=== PATIENT | female | born 1985 | race Caucasian/White ===

== ENCOUNTER 2018-03-14 16:48 | Inpatient (IN) ==
[2018-03-14 17:49] LABS: Bilirubin,Urine Negative (Negative); Blood,Urine Negative (Negative); Clarity,Urine Clear (Clear); Color,Urine Yellow (Yellow); Glucose,Urine (UA) Normal (Normal); Ketones,Urine Negative (Negative); Leukocyte Esterase,Urine Negative (Negative); Nitrite,Urine Negative (Negative); PH,Urine 6.5 pH Units (5.0-8.0); Protein,Urine Negative (Neg-Trace); Specific Gravity,Urine 1.012 (1.010-1.025); Urobilinogen,Urine Normal (Normal)
[2018-03-14 17:53] LABS: Basophils % 0.4 %; Eosinophils % 0.1 %; Hemoglobin 13.5 g/dL (11.5-15.4); Immature Granulocytes % 0.3 % (0-4); Lymphocytes # 1.5 K/mcL (0.6-4.6); Lymphocytes % 15.1 %; Mean Corpuscular HGB Conc 32.9 g/dL (31.6-35.5); Mean Corpuscular Hemoglobin 28.1 pg (28.0-33.3); Mean Corpuscular Volume 85.2 fL (83.0-100.0); Mean Platelet Volume 9.9 fL (9.4-12.4); Monocytes # 0.5 K/mcL (0.0-1.3); Monocytes % 4.9 %; Neutrophils # 7.7 K/mcL (1.6-8.9); Platelet Count 261 K/mcL (140-400); Red Blood Count 4.81 M/mcL (3.82-4.97); Red Cell Distribution Width 13.4 % (11.5-14.5); Segmented Neutrophils % 79.2 %
[2018-03-14 17:58] LABS: Amphetamine Screen,Urine Positive ng/mL (Cutoff=1000); Barbiturate Screen,Urine Negative ng/mL (Cutoff=200); Benzodiazepines Screen,Urine Negative ng/mL (Cutoff=200); Cannabinoid Screen,Urine Positive ng/mL (Cutoff = 50); Cocaine Screen,Urine Negative ng/mL (Cutoff= 300); Opiate Screen,Urine Negative ng/mL (Cutoff=300); Phencyclidine Screen,Urine Negative ng/mL (Cutoff=25)
[2018-03-14 18:12] LABS: Acetaminophen < 10 mcg/mL (10-20); BUN/Creatinine Ratio 13 (6-26); Blood Urea Nitrogen 10 mg/dL (6-20); Calcium 9.9 mg/dL (8.6-10.3); Carbon Dioxide 28 mEq/L (23-29); Chloride 106 mEq/L (98-107); Ethanol < 10 mg/dL (Less than 10); Glucose 104 mg/dL (70-105); Osmolality,Calculated 293 (280-300); Potassium 3.4 mEq/L (3.5-5.1); Salicylate < 2.5 mg/dL (15.0-30.0); Sodium 142 mEq/L (136-145); eGFR For Non-African Americans > 60 (> 60)
--- NOTE | 2018-03-14 19:43 | Emergency Department Note ---
Disposition Clinical Impression: Acute psychosis Disposition: Still a Patient Forms: ED Satisfaction Letter Time of Disposition: 18:38 General Adult HPI - General Chief complaint: ED Psychiatric Symptoms Stated complaint: psych Time Seen by Provider: 03/14/18 17:19 Source: patient, family Mode of arrival: ambulatory Limitations: no limitations Nursing Notes Reviewed: Yes Vital Signs Reviewed: Yes - History of Present Illness HPI Narrative: Patient presents to the emergency department the chief complaint of behavior changes. Talking to people who are not there. Yelling at family members. Associating people she comes in contact with with people from her past. states that she stalking out of her head. Patient states that he just does not follow her. She states she is having nightmares. She denies that there is any issues. She denies wanting to hurt herself. He does not believe that she is a threat to herself but is concerned about the safety of others. Pain Scale: 0 - Related Data Previous Rx's Medication Instructions Recorded Amoxicillin 875 mg PO BID #20 tablet 11/12/16 Albuterol Sulfate [Albuterol 2 puff IH Q6HR PRN #1 inhaler 05/29/17 Inhaler] Benzonatate [Tessalon] 200 mg PO TID PRN 7 Days capsule 05/29/17 Loratadine/Pseudophed (12 HR) 1 each PO BID PRN 7 Days #15 05/29/17 [Claritin D (12HR)] tab.er.12h Allergies Allergy/AdvReac Type Severity Reaction Status Date / Time Sulfa (Sulfonamide Allergy Hives Verified 03/14/18 16:54 Antibiotics) All systems ED: reviewed and negative except as stated. Constitutional: Denies: fever Cardiovascular: Denies: chest pain Respiratory: Denies: dyspnea Gastrointestinal: Denies: abdominal pain, nausea, vomiting, diarrhea Past Medical History - Past Medical History Attestation: Yes The following information was validated with the patient. Source: patient Medical history: Reports: no medical history Psychiatric history: Reports: anxiety, depression - Social History Smoking Status: Former smoker Smokeless Tobacco Status: No Alcohol use: Reports: none Drug use: Reports: none Physical Exam Patient awake and alert sitting up in bed. Mildly agitated. Calls me by alec eone else's name. Thinks I am someone from her past. - General Limitations: no limitations General appearance: alert, anxious - Head Head exam: atraumatic, normocephalic - Eye Eye exam: Present: normal appearance, PERRL - ENT ENT exam: normal exam - Neck Neck exam: Present: normal inspection - Respiratory Respiratory exam: Present: normal lung sounds bilaterally - Cardiovascular Cardiovascular exam: Present: regular rate, normal rhythm, normal heart sounds - Abdominal Exam Abdominal exam: Present: soft - Back Exam Back exam: Present: normal inspection - Neurological Exam Neurological exam: Present: alert, oriented X3 - Psychiatric Psychiatric exam: Present: agitated, anxious - Skin Skin exam: Present: warm, dry Course Course Narrative: Patient is in no distress. Medically clear and have her evaluated by 1A. - Reevaluation(s) Reevaluation #1: Patient is medically cleared at this time. We will have nursing staff contact Ia for evaluation. Will be signed out to material handler 2nd shift pending disposition. Time: 18:38 Vital Signs Temperature 97.8 F 03/14/18 16:55 Pulse Rate 112 03/14/18 16:55 Respiratory Rate 18 03/14/18 16:55 Blood Pressure 153/100 03/14/18 16:55 O2 Sat by Pulse Oximetry 100 03/14/18 16:55 Temperature 97.8 F 03/14/18 16:55 Pulse Rate 112 03/14/18 16:55 Respiratory Rate 18 03/14/18 16:55 Blood Pressure 153/100 03/14/18 16:55 O2 Sat by Pulse Oximetry 100 03/14/18 16:55 Oxygen Delivery Oxygen Delivery Room Air Medical Decision Making - Lab Data Result diagrams: 03/14/18 17:43 03/14/18 17:43 Lab Results 03/14/18 03/14/18 03/14/18 Range/Units 17:35 17:35 17:35 WBC (4.3-11.1) K/mcL RBC (3.82-4.97) M/mcL Hgb (11.5-15.4) g/dL Hct (35.3-44.9) % MCV (83.0-100.0) fL MCH (28.0-33.3) pg MCHC (31.6-35.5) g/dL RDW (11.5-14.5) % Plt Count (140-400) K/mcL MPV (9.4-12.4) fL Immature Gran % (0-4) % Seg Neutrophils % % Lymphocytes % % Monocytes % % Eosinophils % % Basophils % % Neutrophils # (1.6-8.9) K/mcL Lymphocytes # (0.6-4.6) K/mcL Monocytes # (0.0-1.3) K/mcL Eosinophils # (0.0-0.6) K/mcL Basophils # (0.0-0.2) K/mcL Sodium (136-145) mEq/L Potassium (3.5-5.1) mEq/L Chloride (98-107) mEq/L Carbon Dioxide (23-29) mEq/L BUN (6-20) mg/dL Creatinine (0.60-1.20) mg/dL Est GFR ( Amer) (> 60) Est GFR (Non-Af Amer) (> 60) BUN/Creatinine Ratio (6-26) Glucose (70-105) mg/dL Calculated Osmolality (280-300) Calcium (8.6-10.3) mg/dL Urine Color Yellow (Yellow) Urine Clarity Clear (Clear) Urine pH 6.5 (5.0-8.0) pH Units Ur Specific [place] 1.012 (1.010-1.025) Urine Protein Negative (Neg-Trace) mg/dL Urine Glucose (UA) Normal (Normal) mg/dL Urine Ketones Negative (Negative) mg/dL Urine Blood Negative (Negative) Urine Nitrite Negative (Negative) Urine Bilirubin Negative (Negative) Urine Urobilinogen Normal (Normal) mg/dL Ur Leukocyte Esterase Negative (Negative) Urine Test Negative (Negative) Salicylates (15.0-30.0) mg/dL Urine Opiates Screen Negative (Rdwkcz=643) ng/mL Acetaminophen (10-20) mcg/mL Ur Barbiturates Screen Negative (Yawuqx=331) ng/mL Ur Phencyclidine Scrn Negative (Cutoff=25) ng/mL Ur Amphetamines Screen Positive H (Qummng=6267) ng/mL U Benzodiazepines Scrn Negative (Kldvaq=979) ng/mL Urine Cocaine Screen Negative (Cutoff= 300) ng/mL U Marijuana (THC) Screen Positive H (Cutoff = 50) ng/mL Ur Drug Screen Interp See Below Ethyl Alcohol (Less than 10) mg/dL 03/14/18 03/14/18 Range/Units 17:43 17:43 WBC 9.8 (4.3-11.1) K/mcL RBC 4.81 (3.82-4.97) M/mcL Hgb 13.5 (11.5-15.4) g/dL Hct 41.0 (35.3-44.9) % MCV 85.2 (83.0-100.0) fL MCH 28.1 (28.0-33.3) pg MCHC 32.9 (31.6-35.5) g/dL RDW 13.4 (11.5-14.5) % Plt Count 261 (140-400) K/mcL MPV 9.9 (9.4-12.4) fL Immature Gran % 0.3 (0-4) % Seg Neutrophils % 79.2 % Lymphocytes % 15.1 % Monocytes % 4.9 % Eosinophils % 0.1 % Basophils % 0.4 % Neutrophils # 7.7 (1.6-8.9) K/mcL Lymphocytes # 1.5 (0.6-4.6) K/mcL Monocytes # 0.5 (0.0-1.3) K/mcL Eosinophils # 0.0 (0.0-0.6) K/mcL Basophils # 0.0 (0.0-0.2) K/mcL Sodium 142 (136-145) mEq/L Potassium 3.4 L (3.5-5.1) mEq/L Chloride 106 (98-107) mEq/L Carbon Dioxide 28 (23-29) mEq/L BUN 10 (6-20) mg/dL Creatinine 0.79 (0.60-1.20) mg/dL Est GFR ( Amer) > 60 (> 60) Est GFR (Non-Af Amer) > 60 (> 60) BUN/Creatinine Ratio 13 (6-26) Glucose 104 (70-105) mg/dL Calculated Osmolality 293 (280-300) Calcium 9.9 (8.6-10.3) mg/dL Urine Color (Yellow) Urine Clarity (Clear) Urine pH (5.0-8.0) pH Units Ur Specific [place] (1.010-1.025) Urine Protein (Neg-Trace) mg/dL Urine Glucose (UA) (Normal) mg/dL Urine Ketones (Negative) mg/dL Urine Blood (Negative) Urine Nitrite (Negative) Urine Bilirubin (Negative) Urine Urobilinogen (Normal) mg/dL Ur Leukocyte Esterase (Negative) Urine Test (Negative) Salicylates < 2.5 L (15.0-30.0) mg/dL Urine Opiates Screen (Dcgvwu=469) ng/mL Acetaminophen < 10 L (10-20) mcg/mL Ur Barbiturates Screen (Onniba=165) ng/mL Ur Phencyclidine Scrn (Cutoff=25) ng/mL Ur Amphetamines Screen (Zwkeug=7643) ng/mL U Benzodiazepines Scrn (Tgxwzc=517) ng/mL Urine Cocaine Screen (Cutoff= 300) ng/mL U Marijuana (THC) Screen (Cutoff = 50) ng/mL Ur Drug Screen Interp Ethyl Alcohol < 10 (Less than 10) mg/dL
--- NOTE | 2018-03-14 21:17 | Emergency Department Note ---
Disposition Clinical Impression: Acute psychosis, Major depression with psychotic features Disposition: Admitted As Inpatient Condition: Good Referrals: NONE,PCP [Primary Care Provider] - Forms: ED Satisfaction Letter Time of Disposition: 21:17 General Adult HPI - General Chief complaint: ED Psychiatric Symptoms Stated complaint: psych Time Seen by Provider: 03/14/18 17:19 Source: patient, family Mode of arrival: ambulatory Limitations: no limitations - History of Present Illness Pain Scale: 0 - Related Data Previous Rx's Medication Instructions Recorded Amoxicillin 875 mg PO BID #20 tablet 11/12/16 Albuterol Sulfate [Albuterol 2 puff IH Q6HR PRN #1 inhaler 05/29/17 Inhaler] Benzonatate [Tessalon] 200 mg PO TID PRN 7 Days capsule 05/29/17 Loratadine/Pseudophed (12 HR) 1 each PO BID PRN 7 Days #15 05/29/17 [Claritin D (12HR)] tab.er.12h Allergies Allergy/AdvReac Type Severity Reaction Status Date / Time Sulfa (Sulfonamide Allergy Hives Verified 03/14/18 16:54 Antibiotics) Constitutional: Denies: fever Cardiovascular: Denies: chest pain Respiratory: Denies: dyspnea Gastrointestinal: Denies: abdominal pain, nausea, vomiting, diarrhea Past Medical History - Past Medical History Medical history: Reports: no medical history Psychiatric history: Reports: anxiety, depression - Social History Smoking Status: Former smoker Smokeless Tobacco Status: No Alcohol use: Reports: none Drug use: Reports: none Physical Exam - General Limitations: no limitations General appearance: alert, anxious Course Course Narrative: This patient was signed out to me at shift change from Dr. Shayla franco. Please refer to her note for complete details of history and physical examination. Patient presented for psychiatric evaluation due to some behavioral and psychotic issues and threatening family members. She has been medically cleared for psychiatric evaluation and is awaiting consult by the [address] psychiatry department. After being evaluated by the [address] psychiatry department and consulted with the psychiatrist patient is being admitted to the [address] psychiatric unit. Vital Signs Temperature 97.8 F 03/14/18 16:55 Pulse Rate 112 03/14/18 16:55 Respiratory Rate 18 03/14/18 16:55 Blood Pressure 153/100 03/14/18 16:55 O2 Sat by Pulse Oximetry 100 03/14/18 16:55 Temperature 97.8 F 03/14/18 17:10 Pulse Rate 102 03/14/18 17:10 Respiratory Rate 18 03/14/18 17:10 Blood Pressure 153/100 03/14/18 17:10 O2 Sat by Pulse Oximetry 97 03/14/18 17:10 Oxygen Delivery Oxygen Delivery Room Air Medical Decision Making - Lab Data Lab results reviewed: Yes I reviewed the patient's lab results. Result diagrams: 03/14/18 17:43 03/14/18 17:43 Lab Results 03/14/18 03/14/18 03/14/18 Range/Units 17:35 17:35 17:35 WBC (4.3-11.1) K/mcL RBC (3.82-4.97) M/mcL Hgb (11.5-15.4) g/dL Hct (35.3-44.9) % MCV (83.0-100.0) fL MCH (28.0-33.3) pg MCHC (31.6-35.5) g/dL RDW (11.5-14.5) % Plt Count (140-400) K/mcL MPV (9.4-12.4) fL Immature Gran % (0-4) % Seg Neutrophils % % Lymphocytes % % Monocytes % % Eosinophils % % Basophils % % Neutrophils # (1.6-8.9) K/mcL Lymphocytes # (0.6-4.6) K/mcL Monocytes # (0.0-1.3) K/mcL Eosinophils # (0.0-0.6) K/mcL Basophils # (0.0-0.2) K/mcL Sodium (136-145) mEq/L Potassium (3.5-5.1) mEq/L Chloride (98-107) mEq/L Carbon Dioxide (23-29) mEq/L BUN (6-20) mg/dL Creatinine (0.60-1.20) mg/dL Est GFR ( Amer) (> 60) Est GFR (Non-Af Amer) (> 60) BUN/Creatinine Ratio (6-26) Glucose (70-105) mg/dL Calculated Osmolality (280-300) Calcium (8.6-10.3) mg/dL Urine Color Yellow (Yellow) Urine Clarity Clear (Clear) Urine pH 6.5 (5.0-8.0) pH Units Ur Specific [place] 1.012 (1.010-1.025) Urine Protein Negative (Neg-Trace) mg/dL Urine Glucose (UA) Normal (Normal) mg/dL Urine Ketones Negative (Negative) mg/dL Urine Blood Negative (Negative) Urine Nitrite Negative (Negative) Urine Bilirubin Negative (Negative) Urine Urobilinogen Normal (Normal) mg/dL Ur Leukocyte Esterase Negative (Negative) Urine Test Negative (Negative) Salicylates (15.0-30.0) mg/dL Urine Opiates Screen Negative (Kjuivh=806) ng/mL Acetaminophen (10-20) mcg/mL Ur Barbiturates Screen Negative (Vmnpxb=161) ng/mL Ur Phencyclidine Scrn Negative (Cutoff=25) ng/mL Ur Amphetamines Screen Positive H (Yaqhat=6416) ng/mL U Benzodiazepines Scrn Negative (Lzptnn=129) ng/mL Urine Cocaine Screen Negative (Cutoff= 300) ng/mL U Marijuana (THC) Screen Positive H (Cutoff = 50) ng/mL Ur Drug Screen Interp See Below Ethyl Alcohol (Less than 10) mg/dL 03/14/18 03/14/18 Range/Units 17:43 17:43 WBC 9.8 (4.3-11.1) K/mcL RBC 4.81 (3.82-4.97) M/mcL Hgb 13.5 (11.5-15.4) g/dL Hct 41.0 (35.3-44.9) % MCV 85.2 (83.0-100.0) fL MCH 28.1 (28.0-33.3) pg MCHC 32.9 (31.6-35.5) g/dL RDW 13.4 (11.5-14.5) % Plt Count 261 (140-400) K/mcL MPV 9.9 (9.4-12.4) fL Immature Gran % 0.3 (0-4) % Seg Neutrophils % 79.2 % Lymphocytes % 15.1 % Monocytes % 4.9 % Eosinophils % 0.1 % Basophils % 0.4 % Neutrophils # 7.7 (1.6-8.9) K/mcL Lymphocytes # 1.5 (0.6-4.6) K/mcL Monocytes # 0.5 (0.0-1.3) K/mcL Eosinophils # 0.0 (0.0-0.6) K/mcL Basophils # 0.0 (0.0-0.2) K/mcL Sodium 142 (136-145) mEq/L Potassium 3.4 L (3.5-5.1) mEq/L Chloride 106 (98-107) mEq/L Carbon Dioxide 28 (23-29) mEq/L BUN 10 (6-20) mg/dL Creatinine 0.79 (0.60-1.20) mg/dL Est GFR ( Amer) > 60 (> 60) Est GFR (Non-Af Amer) > 60 (> 60) BUN/Creatinine Ratio 13 (6-26) Glucose 104 (70-105) mg/dL Calculated Osmolality 293 (280-300) Calcium 9.9 (8.6-10.3) mg/dL Urine Color (Yellow) Urine Clarity (Clear) Urine pH (5.0-8.0) pH Units Ur Specific [place] (1.010-1.025) Urine Protein (Neg-Trace) mg/dL Urine Glucose (UA) (Normal) mg/dL Urine Ketones (Negative) mg/dL Urine Blood (Negative) Urine Nitrite (Negative) Urine Bilirubin (Negative) Urine Urobilinogen (Normal) mg/dL Ur Leukocyte Esterase (Negative) Urine Test (Negative) Salicylates < 2.5 L (15.0-30.0) mg/dL Urine Opiates Screen (Xtewcw=047) ng/mL Acetaminophen < 10 L (10-20) mcg/mL Ur Barbiturates Screen (Djuydl=534) ng/mL Ur Phencyclidine Scrn (Cutoff=25) ng/mL Ur Amphetamines Screen (Llbbfk=2812) ng/mL U Benzodiazepines Scrn (Xevsjy=760) ng/mL Urine Cocaine Screen (Cutoff= 300) ng/mL U Marijuana (THC) Screen (Cutoff = 50) ng/mL Ur Drug Screen Interp Ethyl Alcohol < 10 (Less than 10) mg/dL
[2018-03-14] MEDS ORDERED: Haloperidol Lactate 5 MG/ML VIAL IM PRN (22:28)
[2018-03-14] MEDS ORDERED: Mag Hydrox/Al Hydrox/Simeth 30 ML UDC PO PRN (22:28)
[2018-03-14] MEDS ORDERED: *HR* LORazepam 1 MG TABLET PO PRN (22:28)
[2018-03-14] MEDS ORDERED: MOM Conc 10 ML UD.LIQ PO PRN (22:28)
[2018-03-14] MEDS ORDERED: *HR* LORazepam 2 MG/ML VIAL IM PRN (22:28)
[2018-03-14] MEDS: hydrOXYzine pamoate 25 MG CAPSULE PO PRN (22:54)
--- NOTE | 2018-03-15 10:17 | Psychiatry History & Physical ---
Date of Encounter: 03/15/18 Time of Encounter: 10:10 History of Present Illness Patient Stated Chief Complaint: psychosis Medicare Admission Attestation: For traditional Medicare patients the provided hospital inpatient services are reasonable and necessary and in the case of services not specified as inpatient-only under 42 CFR 419.22 (n), that they are appropriately provided as inpatient services in accordance 42 CFR 412.3. For Critical Access Hospital the patient may reasonably be expected to be discharged or transferred to a hospital within 96 hours after admission to the Critical Access Hospital. Admitted From: Home Plans for Post Hospital Care: Home History of Present Illness: Ms. Kuhn is a 32 year old female who seems to be experiencing a psychotic depression. Likely Bipolar Disorder exacerbated by drug use. Client denies using any recreational drugs but tox screen positive for THC and Amphetamines. Tearful and anxious. Disjointed thoughts. Delayed responses but also very scattered. Some delusional thinking. Keeps thinking she knows staff from elsewhere. Poor historian. According to admission notes she has been talking to herself at home and yelling at people who are not there. Currently only takes Inderal and Vistaril. Prescribed Buspar but client refuses to take it. Very nervous about taking meds. Does not want anything. Believes she will have side effects and be unable to tolerate any prescriptions. Discussed Abilify. She is unsure but will consider it. Client thinks she just has anxiety. Does not believe she has a mood disorder or a thought disorder. May ultimately need a forced med order as she is unable to go home in current state. Client reports having three young children in the home with her. Has a history of cutting behaviors but nothing recent. Denies current or past SI. Denies physical health problems. Past Med Surg Social Fam HX - Past Medical History Medical history: no medical history - Past Psychiatric History Psychiatric history: Reports: anxiety, bipolar, depression, PTSD Family psychiatric history: Unknown Family History of Suicide: Unknown - Past Surgical History Surgical History: - Social History Smoking Status: Former smoker Smokeless Tobacco Status: No Alcohol use: none Drug use: none Medications & Allergies Buspirone HCl [Buspar] 5 mg PO BID 03/14/18 [History] HydrOXYzine 10 - 20 mg PO Q8H PRN 03/14/18 [History] Propranolol [Inderal] 20 mg PO BID 03/14/18 [History] Allergy/AdvReac Type Severity Reaction Status Date / Time Sulfa (Sulfonamide Allergy Hives Verified 03/14/18 16:54 Antibiotics) Review of Systems Constitutional: Denies: fever, chills, weakness, weight change Eyes: Denies: eye pain, vision change Ears, Nose, Throat: Denies: ear pain, throat pain, dental pain, hearing loss, congestion Cardiovascular: Denies: chest pain, palpitations, dyspnea on exertion Respiratory: Denies: cough, dyspnea, wheezes Gastrointestinal: Denies: abdominal pain, nausea, vomiting, diarrhea, constipation Genitourinary female: Denies: urgency, dysuria, frequency, abnormal menses, dyspareunia Musculoskeletal: Denies: joint swelling, joint pain Integumentary: Denies: rash, lesions, pruritus Neurological: Denies: headache, weakness, numbness, memory loss Endocrine: Denies: fatigue, heat or cold intolerance Hematologic/Lymphatic: Denies: easy bruising, lymphadenopathy Allergic/Immunologic: Denies: urticaria, itchy eyes Exam - HEENT Head exam IM: Present: atraumatic Eye exam IM: Present: EOMI, normal appearance, PERRL ENT exam IM: Present: normal exam - Neurological Neurological exam: Present: CN II-XII intact - Respiratory Respiratory exam IM: Present: CTAB - GI/Abdominal GI/Abdominal exam IM: Present: normal bowel sounds, soft. Absent: tenderness - Extremities Extremities exam IM: Present: full ROM - Skin Skin exam IM: Present: dry, warm - Constitutional Vitals: Temp Pulse Resp BP Pulse Ox 98.1 F 117 18 140/92 100 03/15/18 09:00 03/15/18 09:00 03/15/18 09:00 03/15/18 09:00 03/15/18 09:00 General appearance: age & developmentally appropriate, well-groomed, well- nourished - Musculoskeletal Gait: normal Station: relaxed Strength & Tone: normal for patient - Psychiatric Patient Orientation: Yes Person, Yes Time, Yes Place Level of alertness: Alert Behavior: cooperative, anxious, tearful Psychomotor activity: Normal Eye Contact: Maintains Eye Contact Mood Description: Depressed, Anxious Affect description: tearful Speech Volume: Normal Speech pattern: slowed Language & Vocabulary: consistent with education Thought Process: Thought Blocking Thought Content: No Suicidal ideation, No Homicidal ideation, Yes Overt delusions Perceptual Disturbances: Yes Reacting to internal stimuli, No Auditory hallucinations, No Visual hallucinations Attention Span Ability: Capable of Focused Attention Memory Description: Grossly Intact Patient Reliability: Questionable Historian Fund of knowledge: Yes abstraction ability, Yes average, Yes aware of current events Intelligence Estimate: Average Judgment: Limited Insight: Minimal Results - Drug Levels and Toxicology Drug Levels and Toxicology: Drug Levels and Toxicity 03/14/18 03/14/18 17:35 17:43 Urine Opiates Screen Negative Acetaminophen < 10 L Ur Barbiturates Screen Negative Ur Phencyclidine Scrn Negative Ur Amphetamines Screen Positive H U Benzodiazepines Scrn Negative Urine Cocaine Screen Negative U Marijuana (THC) Screen Positive H Ethyl Alcohol < 10 - Labs Labs: Laboratory Last Values WBC 9.8 K/mcL (4.3-11.1) 03/14/18 17:43 RBC 4.81 M/mcL (3.82-4.97) 03/14/18 17:43 Hgb 13.5 g/dL (11.5-15.4) 03/14/18 17:43 Hct 41.0 % (35.3-44.9) 03/14/18 17:43 MCV 85.2 fL (83.0-100.0) 03/14/18 17:43 MCH 28.1 pg (28.0-33.3) 03/14/18 17:43 MCHC 32.9 g/dL (31.6-35.5) 03/14/18 17:43 RDW 13.4 % (11.5-14.5) 03/14/18 17:43 Plt Count 261 K/mcL (140-400) 03/14/18 17:43 MPV 9.9 fL (9.4-12.4) 03/14/18 17:43 Immature Gran % 0.3 % (0-4) 03/14/18 17:43 Seg Neutrophils % 79.2 % 03/14/18 17:43 Lymphocytes % 15.1 % 03/14/18 17:43 Monocytes % 4.9 % 03/14/18 17:43 Eosinophils % 0.1 % 03/14/18 17:43 Basophils % 0.4 % 03/14/18 17:43 Neutrophils # 7.7 K/mcL (1.6-8.9) 03/14/18 17:43 Lymphocytes # 1.5 K/mcL (0.6-4.6) 03/14/18 17:43 Monocytes # 0.5 K/mcL (0.0-1.3) 03/14/18 17:43 Eosinophils # 0.0 K/mcL (0.0-0.6) 03/14/18 17:43 Basophils # 0.0 K/mcL (0.0-0.2) 03/14/18 17:43 Sodium 142 mEq/L (136-145) 03/14/18 17:43 Potassium 3.4 mEq/L (3.5-5.1) L 03/14/18 17:43 Chloride 106 mEq/L (98-107) 03/14/18 17:43 Carbon Dioxide 28 mEq/L (23-29) 03/14/18 17:43 BUN 10 mg/dL (6-20) 03/14/18 17:43 Creatinine 0.79 mg/dL (0.60-1.20) 03/14/18 17:43 Est GFR ( Amer) > 60 (> 60) 03/14/18 17:43 Est GFR (Non-Af Amer) > 60 (> 60) 03/14/18 17:43 BUN/Creatinine Ratio 13 (6-26) 03/14/18 17:43 Glucose 104 mg/dL (70-105) 03/14/18 17:43 Calculated Osmolality 293 (280-300) 03/14/18 17:43 Calcium 9.9 mg/dL (8.6-10.3) 03/14/18 17:43 Urine Color Yellow (Yellow) 03/14/18 17:35 Urine Clarity Clear (Clear) 03/14/18 17:35 Urine pH 6.5 pH Units (5.0-8.0) 03/14/18 17:35 Ur Specific [place] 1.012 (1.010-1.025) 03/14/18 17:35 Urine Protein Negative mg/dL (Neg-Trace) 03/14/18 17:35 Urine Glucose (UA) Normal mg/dL (Normal) 03/14/18 17:35 Urine Ketones Negative mg/dL (Negative) 03/14/18 17:35 Urine Blood Negative (Negative) 03/14/18 17:35 Urine Nitrite Negative (Negative) 03/14/18 17:35 Urine Bilirubin Negative (Negative) 03/14/18 17:35 Urine Urobilinogen Normal mg/dL (Normal) 03/14/18 17:35 Ur Leukocyte Esterase Negative (Negative) 03/14/18 17:35 Urine Test Negative (Negative) 03/14/18 17:35 Salicylates < 2.5 mg/dL (15.0-30.0) L 03/14/18 17:43 Urine Opiates Screen Negative ng/mL (Utkixm=101) 03/14/18 17:35 Acetaminophen < 10 mcg/mL (10-20) L 03/14/18 17:43 Ur Barbiturates Screen Negative ng/mL (Avrpkn=895) 03/14/18 17:35 Ur Phencyclidine Scrn Negative ng/mL (Cutoff=25) 03/14/18 17:35 Ur Amphetamines Screen Positive ng/mL (Kgaeur=3758) H 03/14/18 17:35 U Benzodiazepines Scrn Negative ng/mL (Fqcwxe=075) 03/14/18 17:35 Urine Cocaine Screen Negative ng/mL (Cutoff= 300) 03/14/18 17:35 U Marijuana (THC) Screen Positive ng/mL (Cutoff = 50) H 03/14/18 17:35 Ur Drug Screen Interp See Below 03/14/18 17:35 Ethyl Alcohol < 10 mg/dL (Less than 10) 03/14/18 17:43 Assessment and Plan (1) Bipolar disorder with psychotic features Current visit: Yes Status: Acute Plan: Admit inpatient for safety and stabilization, Close observation, Suicide Precautions per unit protocol, Encourage participation in unit milieu, Group Therapy, Monitor sleep, Monitor appetite Risks, benefits, side effects, alternatives discussed w/pt: Yes Patient agreeable to treatment: Yes Plans for Post Hospital Care: Home Estimated Length of Stay (Days): 4
[2018-03-15] MEDS: hydrOXYzine pamoate 25 MG CAPSULE PO PRN ×2 (15:36→21:24)
[2018-03-15] MEDS ORDERED: ARIPiprazole 2 MG TABLET PO SCH (21:00)
[2018-03-15] MEDS: traZODone 50 MG TABLET PO PRN (21:23)
[2018-03-16] MEDS: Ibuprofen 400 MG TABLET PO PRN ×2 (09:58→19:28)
--- NOTE | 2018-03-16 11:01 | Psychiatry Progress Note ---
Date of Encounter: 03/16/18 Time of Encounter: 10:51 Subjective Interval history: Reports she is feeling better today. Wants to go home. No where near ready but she did take the Abilify last night. Claims she slept well which is an improvement so will leave the medication at night. Will increase dose today since no side effects. Still easily tearful but less lability noted. Still making bizarre statements at times. Looked away from this principal technical writer briefly when talking and then apologized for doing so. "Sorry I had to look away because of your eyes." Did not say anything more. This principal technical writer circled back to her statement later and client minimized what she had said. Indicated this principal technical writer reminded her of someone. Has been making similar statements to other staff members-thinking she knows staff members from her past. More open about symptoms but still trying to minimize. Did admit to experiencing AH in her past but reported it was months ago. Staff have observed her responding to internal stimuli on the unit. Review of Systems Constitutional: Denies: fever, chills, weakness, weight change Eyes: Denies: eye pain, vision change Ears, Nose, Throat: Denies: ear pain, throat pain, dental pain, hearing loss, congestion Cardiovascular: Denies: chest pain, palpitations, dyspnea on exertion Respiratory: Denies: cough, dyspnea, wheezes Gastrointestinal: Denies: abdominal pain, nausea, vomiting, diarrhea, constipation Musculoskeletal: Denies: joint swelling, joint pain Neurological: Denies: headache, weakness, numbness, memory loss Results - Vital Signs Vital Signs: Temp Pulse Resp BP Pulse Ox 98.6 F 78 18 151/114 100 03/15/18 20:05 03/15/18 20:05 03/15/18 20:05 03/15/18 20:05 03/15/18 20:05 Assessment and Plan (1) Bipolar disorder with psychotic features Current visit: Yes Status: Acute Plan: Continue hospitalization, Close observation, Suicide Precautions per unit protocol, Encourage participation in unit milieu, Group Therapy, Monitor sleep, Monitor appetite Risks, benefits, side effects, alternatives discussed w/pt: Yes Patient agreeable to treatment: Yes Consult Discharge Plan - Plan Referrals: NONE,PCP [Primary Care Provider] - Psychiatry Exam - Constitutional Vitals: Temp Pulse Resp BP Pulse Ox 98.6 F 78 18 151/114 100 03/15/18 20:05 03/15/18 20:05 03/15/18 20:05 03/15/18 20:05 03/15/18 20:05 General appearance: age & developmentally appropriate, well-groomed, well- nourished - Musculoskeletal Gait: normal Station: relaxed Strength & Tone: normal for patient - Psychiatric Patient Orientation: Yes Person, Yes Time, Yes Place Level of alertness: Alert Behavior: calm, cooperative Psychomotor activity: Normal Eye Contact: Maintains Eye Contact Mood Description: Depressed, Anxious Affect description: congruent with mood Speech Volume: Normal Speech pattern: normal rate, normal rhythm, normal tone, fluent, spontaneous Language & Vocabulary: consistent with education Thought Process: Tangential Thought Content: No Suicidal ideation, No Homicidal ideation, Yes Overt delusions, Yes Paranoid delusion Perceptual Disturbances: Yes Reacting to internal stimuli Attention Span Ability: Capable of Focused Attention Memory Description: Grossly Intact Patient Reliability: Questionable Historian Fund of knowledge: Yes abstraction ability, Yes aware of current events Intelligence Estimate: Average Judgment: Fair Insight: Partial
[2018-03-16] MEDS: ARIPiprazole 5 MG TABLET PO SCH (21:57)
[2018-03-16] MEDS: traZODone 50 MG TABLET PO PRN (21:57)
--- NOTE | 2018-03-17 11:48 | Psychiatry Progress Note ---
Date of Encounter: 03/17/18 Time of Encounter: 11:00 Subjective Interval history: Per admission: Ms. Kuhn is a 32 year old female who seems to be experiencing a psychotic depression. Likely Bipolar Disorder exacerbated by drug use. Client denies using any recreational drugs but tox screen positive for THC and Amphetamines. Tearful and anxious. Disjointed thoughts. Delayed responses but also very scattered. Some delusional thinking. Keeps thinking she knows staff from elsewhere. Poor historian. According to admission notes she has been talking to herself at home and yelling at people who are not there. Currently only takes Inderal and Vistaril. Prescribed Buspar but client refuses to take it. Very nervous about taking meds. Does not want anything. Believes she will have side effects and be unable to tolerate any prescriptions. Discussed Abilify. She is unsure but will consider it. Client thinks she just has anxiety. Does not believe she has a mood disorder or a thought disorder. May ultimately need a forced med order as she is unable to go home in current state. Client reports having three young children in the home with her. Has a history of cutting behaviors but nothing recent. Denies current or past SI. Denies physical health problems. Pt is a 32 yo, , female, who presents for mood and anxiety. Pt noted that she feels she is improving slowly. Pt noted she is optimistic to D/C however she is not sure where to go home to. Pt denied any side effects to current medications. Pt noted she felt safe and comfortable on the unit. Pt was in agreement with treatment plan. Pt noted that she is doing pretty good today. Pt noted she slept 8 hours last night broken up. Pt noted her appetite is Pretty good. Pt rated her depression a 0, on a scale of zero to ten with ten being the worst and zero being none. Pt rate her anxiety a 3, on the same scale. Pt denied any visual or auditory hallucinations. Pt denied any thoughts to harm herself or anyone else. Tobacco: Denies Alcohol: Denies Street: Marijuana every other day.....and amphetamines occasionally intranasal. Caffeine: 2-3 drinks per day. 1.Interval hx 2.Continue current medications 3.Review current labs 4.Pt had an opportunity to ask questions and discuss current treatment plan. 5.Supportive therapy was provided 6.Pt encouraged to consider group or individual therapy 7.Pt was in agreement with treatment plan. 8.Pt was educated on the risks benefits and side effects of current medications. 9. Coordinate for D/C home tomorrow. Review of Systems Constitutional: Denies: fever, chills, weakness, weight change Eyes: Denies: eye pain, vision change Ears, Nose, Throat: Denies: ear pain, throat pain, dental pain, hearing loss, congestion Cardiovascular: Denies: chest pain, palpitations, dyspnea on exertion Respiratory: Denies: cough, dyspnea, wheezes Gastrointestinal: Denies: abdominal pain, nausea, vomiting, diarrhea, constipation Musculoskeletal: Denies: joint swelling, joint pain Neurological: Denies: headache, weakness, numbness, memory loss Results - Vital Signs Vital Signs: Temp Pulse Resp BP Pulse Ox 99.7 F H 101 18 147/108 99 03/17/18 09:00 03/17/18 09:00 03/17/18 09:00 03/17/18 09:00 03/17/18 09:00 Assessment and Plan (1) Bipolar disorder with psychotic features Current visit: Yes Status: Acute Plan: Continue hospitalization, Close observation, Suicide Precautions per unit protocol, Encourage participation in unit milieu, Group Therapy, Monitor sleep, Monitor appetite Risks, benefits, side effects, alternatives discussed w/pt: Yes Patient agreeable to treatment: Yes Consult Discharge Plan - Plan Referrals: NONE,PCP [Primary Care Provider] - Psychiatry Exam - Constitutional Vitals: Temp Pulse Resp BP Pulse Ox 99.7 F H 101 18 147/108 99 03/17/18 09:00 03/17/18 09:00 03/17/18 09:00 03/17/18 09:00 03/17/18 09:00 General appearance: age & developmentally appropriate, well-groomed, well- nourished - Musculoskeletal Gait: normal Station: relaxed Strength & Tone: normal for patient - Psychiatric Patient Orientation: Yes Person, Yes Time, Yes Place Level of alertness: Alert Behavior: calm, cooperative Psychomotor activity: Normal Eye Contact: Maintains Eye Contact Mood Description: Euthymic/stable Affect description: congruent with mood, full range Speech Volume: Normal Speech pattern: normal rate, normal rhythm, normal tone, fluent, spontaneous Language & Vocabulary: consistent with education Thought Process: Linear, Goal Oriented Thought Content: No Suicidal ideation, No Homicidal ideation, No Overt delusions Perceptual Disturbances: No Auditory hallucinations, No Visual hallucinations Attention Span Ability: Capable of Focused Attention Memory Description: Grossly Intact Patient Reliability: Reliable Historian Fund of knowledge: Yes abstraction ability, Yes aware of current events Intelligence Estimate: Average Judgment: Limited Insight: Partial
[2018-03-17] MEDS: ARIPiprazole 5 MG TABLET PO SCH (20:56)
[2018-03-17] MEDS: Ibuprofen 400 MG TABLET PO PRN (20:58)
[2018-03-18 09:28] VITALS: BP 131/98
--- NOTE | 2018-03-18 09:44 | Discharge Summary ---
Date of Encounter: 03/18/18 Time of Encounter: 09:20 Diagnosis - Discharge Diagnosis (1) Bipolar disorder with psychotic features Status: Acute Medications - Discharge Medications Prescriptions: ARIPiprazole [Abilify] 5 mg PO HS 30 Days #30 tablet Buspirone HCl [Buspar] 5 mg PO BID 30 Days #60 tablet HydrOXYzine 10 - 20 mg PO Q8H PRN 30 Days #60 tablet PRN Reason: Anxiety Propranolol [Inderal] 20 mg PO BID 30 Days #60 tablet ARIPiprazole [Abilify] 5 mg PO HS 30 Days #30 tablet 03/18/18 [Rx] Buspirone HCl [Buspar] 5 mg PO BID 30 Days #60 tablet 03/18/18 [Rx] HydrOXYzine 10 - 20 mg PO Q8H PRN 30 Days #60 tablet 03/18/18 [Rx] Propranolol [Inderal] 20 mg PO BID 30 Days #60 tablet 03/18/18 [Rx] Allergy/AdvReac Type Severity Reaction Status Date / Time Sulfa (Sulfonamide Allergy Hives Verified 03/14/18 16:54 Antibiotics) Results Procedures and tests throughout hospitalization: Completed Lab Orders Category Date Time Status Acetaminophen Stat Lab 03/14/18 17:43 Completed Basic Metabolic Panel Stat Lab 03/14/18 17:43 Completed Complete Blood Count [HEME] Stat Lab 03/14/18 17:43 Completed Drug Screen, Urine [UCHEM] Stat Lab 03/14/18 17:35 Completed Ethanol Stat Lab 03/14/18 17:43 Completed Test Result, Urine [URIN] Stat Lab 03/14/18 17:35 Completed Salicylate Stat Lab 03/14/18 17:43 Completed Urinalysis reflex Microscopic [URIN] Stat Lab 03/14/18 17:35 Completed Provider Date of admission: 03/14/18 21:24 Primary care physician: PCP NONE Discharging clinician: Luis Antonio Painter Psychiatry Exam - Constitutional Vitals: Temp Pulse Resp BP Pulse Ox 99.1 F 100 16 131/98 98 03/18/18 09:00 03/18/18 09:00 03/18/18 09:00 03/18/18 09:00 03/18/18 09:00 General appearance: age & developmentally appropriate, well-groomed, well- nourished - Musculoskeletal Gait: normal Station: relaxed Strength & Tone: normal for patient - Psychiatric Patient Orientation: Yes Person, Yes Time, Yes Place Level of alertness: Alert Behavior: calm, cooperative Psychomotor activity: Normal Eye Contact: Maintains Eye Contact Mood Description: Euthymic/stable Affect description: congruent with mood, full range Speech Volume: Normal Speech pattern: normal rate, normal rhythm, normal tone, fluent, spontaneous Language & Vocabulary: consistent with education Thought Process: Linear, Goal Oriented Thought Content: No Suicidal ideation, No Homicidal ideation, No Overt delusions Perceptual Disturbances: No Auditory hallucinations, No Visual hallucinations Attention Span Ability: Capable of Focused Attention Memory Description: Grossly Intact Patient Reliability: Reliable Historian Fund of knowledge: Yes abstraction ability, Yes aware of current events Intelligence Estimate: Average Judgment: Limited Insight: Partial Hospital Course Hospital course: Pt is a 32 yo, , female, who presents for mood and anxiety. Pt noted that she feels she is improving slowly. Pt noted she is optimistic to D/C . Pt denied any side effects to current medications. Pt noted she felt safe and comfortable on the unit. Pt was in agreement with treatment plan. Pt noted that she is doing pretty good today. Pt noted she slept 8 hours last night broken up. Pt noted her appetite is Pretty good. Pt rated her depression a 0, on a scale of zero to ten with ten being the worst and zero being none. Pt rate her anxiety a 0, on the same scale. Pt denied any visual or auditory hallucinations. Pt denied any thoughts to harm herself or anyone else. Patient noted a significant reeducation in her depression and anxiety during her stay at [facility]. Pt noted that she slowly improved to the point that she was comfortable and safe to D/C home. Pt noted she felt her medications were working well and denied any current side effects. Treatment team encouraged Pt to stay out of bed and try to find activities to do, verbalized understanding. pt reported that she felt safe on the unit and comfortable and D/C home. Pt Denied suicidal/homicidal ideations, denied any problems or concerns with medications or side effects. PT voiced progression towards treatment goals and was offered a copy of updated treatment plan completed during visit today. Denied any immediate needs or concerns. Pt denied any access to guns or weapons Pt throughout her stay on in psych pt felt like her medications were working and felt comfortable being discharged on these medications. Pt was advised to take all medications as prescribed, follow up with all scheduled appointments and abstain from any alcohol or illicit substances. Pt was in agreement. Pt felt safe and comfortable to be discharged to her home and follow up with outpt MH. Pt was very optimistic about her D/C. Pt felt safe and comfortable for D/C. Pt stated that she was doing "good," today. Pt stated that she slept "about 8 hours," last night. Pt stated that her appetite is "good." Pt stated that she rates her depression a "0," on a scale of 0-10 with 10 being the worst and 0 being none. Pt stated that she rates her anxiety an "0/10," on the same scale. Pt denies any auditory or visual hallucinations. Pt denied any thoughts to harm herself or anyone else. Pt felt safe and comfortable for D/C. The patient was educated primarily by verbal means about her diagnoses and their manifestations in her life. The option for treatment including group individual therapy programming was offered to her and the use of medications with all their potential risks, benefits, and side-effects were discussed with the pt at length. Pt was given the opportunity to ask questions and she par ticipated in the treatment and planning process. Pt felt ready and eager to be discharged from the from the [facility] to be dishcarged home. Pt felt she was safe for this disposition. Pt was considered to be able to participate in informed consent and decision-making with respect to medical, legal and financial issues at the time of her discharge from the [facility]. No TD noted, AIMS=0 1.Interval hx 2.Continue current medications 3.Review current labs 4.Pt had an opportunity to ask questions and discuss current treatment plan. 5.Supportive therapy was provided 6.Pt encouraged to consider group or individual therapy 7.Pt was in agreement with treatment plan. 8.Pt was educated on the risks benefits and side effects of current medications. 9. take all medications as prescribed 10 abstain from any alcohol or illicit substances. 11. follow up with all scheduled appointments. 12. D/C Pt home 13. Pt was educated on 90 meetings in 90 days and finding a sponsor. Time spent discussing smoking cessation with patient: 3 to 10 minutes Does patient wish to continue nicotine replacement upon disc: No - Time Spent with Patient Total time spent providing and/or coordinating discharge services: Greater than 30 minutes Assessment and Plan - Patient/Caregiver Discharge Instructions Activity: resume usual activities as tolerated Diet: regular diet - Follow up Plan Follow up with: [facility] [Outside] - 03/25/18 11:40 am (The above appointment is with Dr. Marcos and Dr. Rendon for outpatient psychiatric assessment and medciation management services.) Overall status at discharge: Stable Disposition: Home, Self-Care Quality - Multiple Antipsychotics Patient discharged on 2 or more antipsychotic medications: No - Justification Documentation of: Other justification (pt not on 3 antipsychotics) Procedures - Procedures Procedures: Medication Management, Crisis Stabilization, Supportive Therapy, Group Therapy, Psychoeducational Therapy
== END 2018-03-18 11:11 | disposition home or self-care (01) | DRG 753 ==
LOC: EMEROOARM 16:48 → 1ANU 21:24
PROVIDERS: ADMIT Psychiatry & Neurology Forensic Psychiatry; ATTEND Psychiatry & Neurology Forensic Psychiatry